=== PATIENT | male | born 1945 | race Caucasian/White ===

== ENCOUNTER 2019-08-29 08:01 | Outpatient (CLI) | payer OTHER | END 2019-08-29 23:59 | disposition home or self-care (01) | LOC: ROC 08:01 | PROVIDERS: ATTEND Radiology Radiation Oncology | DX: C32.8 Malignant neoplasm of overlapping sites of larynx (principal) | CPT/HCPCS: 99214; G0463 ==

== ENCOUNTER → 2019-08-31 | Outpatient (CLI) | payer OTHER | END | disposition home or self-care (01) | LOC: PETCFH 09:21 | PROVIDERS: ATTEND Radiology Radiation Oncology | DX: C32.8 Malignant neoplasm of overlapping sites of larynx (principal); E04.2 Nontoxic multinodular goiter | CPT/HCPCS: 78815; A9552 ==